=== PATIENT | female | born 1945 | race Caucasian/White ===

== ENCOUNTER 2016-09-02 15:37 | Outpatient (CLI) | payer MEDICARE | END 2016-09-02 15:38 | disposition home or self-care (01) | DX: Z01.810 Encounter for preprocedural cardiovascular examination (principal) ==

== ENCOUNTER 2018-08-03 12:53 | Outpatient (CLI) | payer MEDICARE, OTHER ==
--- NOTE | 2018-08-03 15:08 | Ultrasound Report ---
Reason: NONTOXIC MULTINODULAR GOITER Procedure Date: 08/03/2018 Accession Number: [id number] / [id number] Procedure: US - Head or Neck Soft Tissue CPT Code: FULL RESULT: EXAM: THYROID ULTRASOUND EXAM DATE: 08/03/2018 01:30 PM. CLINICAL HISTORY: NONTOXIC MULTINODULAR GOITER. COMPARISON: 01/07/2016. TECHNIQUE: Real time sonographic imaging of the thyroid was performed by the [employer]. Multiple employer relations representative static images were saved for review. FINDINGS: THYROID GLAND: Right Lobe: 5 x 1.8 x 1.7 cm, volume 8.1 cc. Heterogeneous background echotexture. Left Lobe: 5.1 x 2.1 x 1.5 cm, volume 8.3 cc. Heterogeneous background echotexture. Isthmus: 0.2 cm AP. Numerous subcentimeter cystic and solid nodules are again seen bilaterally. The largest nodule on the right is complex cystic/solid and measures 1 x 0.5 x 0.7 cm unchanged compared to the prior study. The dominant on the left is predominantly solid isoechoic and measures 1.9 x 0.6 x 1.2 cm, also unchanged. LYMPH NODES: No adenopathy demonstrated in the central or lateral compartment. OTHER: None. IMPRESSION: Stable multinodular gland compared with 01/07/2016. No significant new findings Management recommendations are based on 2015 [place] [employer] Management Guidelines for Adult Patients with Thyroid Nodules and Differentiated Thyroid Cancer. RADIA
== END 2018-08-03 12:54 | disposition home or self-care (01) ==
LOC: DI 12:53
PROVIDERS: ATTEND Registered Nurse
DX: E04.2 Nontoxic multinodular goiter (principal)
CPT/HCPCS: 76536

== ENCOUNTER 2020-04-01 10:21 | Day surgery (SDC) | payer MEDICARE, OTHER ==
[2020-04-01] MEDS ORDERED: LACTATED RINGERS 1,000 ML IV ONE ×3 (10:33→13:20)
[2020-04-01] MEDS ORDERED: ONDANSETRON 4 MG/2 ML VIAL IVP ONE (12:26)
[2020-04-01] MEDS ORDERED: MIDAZOLAM 2 MG/2 ML VIAL IVP ONE (12:26)
[2020-04-01] MEDS ORDERED: fentaNYL 250 MCG/5 ML VIAL IVP ONE (12:26)
[2020-04-01 14:12] VITALS: BP 140/67
== END 2020-04-01 10:22 | disposition home or self-care (01) ==
LOC: SDS 10:21
PROVIDERS: ATTEND Internal Medicine Gastroenterology
PROC: 0DBL8ZZ Excision of Transverse Colon, Via Natural or Artificial Opening Endoscopic (ICD-10-PCS; principal; 2020-04-01 11:30)
DX: D12.3 Benign neoplasm of transverse colon (principal); K62.1 Rectal polyp; I10 Essential (primary) hypertension; R01.1 Cardiac murmur, unspecified; F32.9 Major depressive disorder, single episode, unspecified; Z87.891 Personal history of nicotine dependence
CPT/HCPCS: 45380; 45385; J3010; J7120

== ENCOUNTER 2022-04-09 09:18 | Outpatient (CLI) | payer MEDICARE, OTHER ==
--- NOTE | 2022-04-10 08:27 | MRI Report ---
PROCEDURE: FOOT WO - LT INDICATIONS: LEFT FOOT PAIN TECHNIQUE: Noncontrast sagittal T1 spin echo and T2 fast spin echo with fat saturation, long-axis T1 spin echo a nd T2 fast spin echo with fat saturation, short-axis proton density fast spin echo and T2 fast spin e cho with fat saturation through the forefoot. COMPARISON: None. FINDINGS: Image quality: Excellent. Bones and joints: There is moderate hallux valgus. Moderate degenerative changes are seen at the fir st metatarsophalangeal joint with subchondral edema and marginal osteophyte formation. There is osseo us edema within the medial hallux sesamoid, which may be secondary to acute trabecular bone injury, d egenerative changes, or sesamoiditis. Minimal lateral subluxation of the hallux sesamoids. Mild scatt ered degenerative changes at the interphalangeal joints of the toes. Mild osseous edema is seen withi n the second metatarsal shaft. No intraosseous lesions. Soft tissues: Mild nonspecific soft tissue edema is seen surrounding the proximal second metatarsal shaft. Small intermetatarsal bursal effusions are noted. No suspicious and additional mass. The visua lized plantar foot muscles demonstrate normal signal and bulk for age. Intermediate signal intensity within the flexor hallucis longus tendon is consistent with tendinosis. Visualized flexor and extens or tendons otherwise appear intact, without tenosynovitis. Sagittal images demonstrate no evidence f or plantar plate tears. IMPRESSION: 1.Mild nonspecific osseous edema within the second metatarsal shaft with mild surrounding soft tissue edema, possibly related to a mild or resolving osseous contusion and/or mild stress reaction. 2.Moderate hallux valgus and moderate degenerative changes at the first metatarsophalangeal joint. 3.Osseous edema within the medial hallux sesamoid may be secondary to trabecular bone injury related to prior trauma versus metatarsosesamoid degenerative changes or sesamoiditis. 4.Mild extensor pollicis longus tendinosis. Reviewed by: Jared Joseph MD on 04/10/2022 8:26 AM PDT Approved by: Jared Joseph MD on 04/10/2022 8:26 AM PDT Station ID: [id number]
== END 2022-04-09 09:19 | disposition home or self-care (01) ==
LOC: DI 09:18
PROVIDERS: ATTEND Podiatrist Foot & Ankle Surgery
DX: R93.6 Abnormal findings on diagnostic imaging of limbs (principal); R93.89 Abnormal findings on diagnostic imaging of other specified body structures; M20.12 Hallux valgus (acquired), left foot; M67.864 Other specified disorders of tendon, left knee

== ENCOUNTER 2022-06-25 10:04 | Outpatient (CLI) | payer MEDICARE, OTHER ==
--- NOTE | 2022-06-25 12:46 | Mammography Report ---
BILATERAL DIGITAL SCREENING MAMMOGRAM 3D/2D WITH EXAGGERATED CC: 06/25/2022 CLINICAL: Routine screening. Comparison is made to exams dated: 07/17/2015 mammogram, 06/28/2013 mammogram, and 01/05/2012 mammogram - [facility]. There are scattered areas of fibroglandular density in both breasts (category b / 25%-50% glandular t issue). No significant masses, calcifications, or other findings are seen in either breast. There has been no significant interval change. IMPRESSION: NEGATIVE There is no mammographic evidence of malignancy. A 1 year screening mammogram is recommended. Based on the Tyrer Cuzick model (a risk assessment model) the patients lifetime risk is 1.4% and her 10 year risk is 0.0%. According to the ACR, ACS, and NCCN guidelines, an annual breast MRI exam delia g with mammogram is recommended if the patients lifetime risk is 20% or greater. This exam was interpreted at Station ID: [id number]. NOTE: For mammograms, a report in lay terms will be sent to the patient. Approximately 15% of breast malignancies will not be visualized mammographically. In the management of a palpable breast mass, a negative mammogram must not discourage biopsy of a clinically suspicious lesion. Electronically Signed By: Tayler blanchard/uyen:06/25/2022 11:07:15 ACR BI-RADS Category 1: Negative 3341F PARENCHYMAL PATTERN: (A) - The breast(s) demonstrate(s) scattered fibroglandular densities. BI-RADS CATEGORY: (1) - 1 RECOMMENDATION: (ANNUAL) - Recommend routine annual screening mammography. [id number] 1 year screening LATERALITY: (B)
== END 2022-06-25 10:05 | disposition home or self-care (01) ==
LOC: DI 10:04
PROVIDERS: ATTEND Registered Nurse
DX: Z12.31 Encounter for screening mammogram for malignant neoplasm of breast (principal)

== ENCOUNTER 2022-06-25 10:08 | Outpatient (CLI) | payer MEDICARE, OTHER ==
--- NOTE | 2022-06-25 14:12 | DEXA Report ---
PROCEDURE: Dexa Spine and/or Hip INDICATIONS: OSTEOPENIA TECHNIQUE: Dual energy x-ray absorptiometry (DXA) was performed on a [employer] System. Regions measur ed are the AP Spine, femoral neck, and if needed forearm. COMPARISON: None. FINDINGS: Lumbar Spine: Bone Mineral Density 1.1 to g/cm/cm,T score -0.5, previously -0.4 Left Femoral Neck: Bone Mineral Density 0.82 g/cm/cm, T score -1.6, previously -1 Left Hip: Bone Mineral Density 0.82 g/cm/cm,T score -1.5, previously -0.8 (T score greater or equal to -1.0: NORMAL) (T score from -1.1 to -2.4: OSTEOPENIA) (T score less than or equal to -2.5 to: OSTEOPOROSIS) Impression: Left femoral neck and hip osteopenia. T-scores are worse compared to 2016. Patients with diagnosis of osteoporosis or osteopenia should have regular bone mineral density assess ment. For those eligible for Medicare, routine testing is allowed once every 2 years. Testing frequ ency can be increased for patients who have rapidly progressing disease or for those who are receivin g medical therapy to restore bone mass. Reviewed by: Darrion Lacy MD on 06/25/2022 2:11 PM PST Approved by: Darrion Lacy MD on 06/25/2022 2:11 PM PST Station ID: [id number]
== END 2022-06-25 10:09 | disposition home or self-care (01) ==
LOC: DI 10:08
PROVIDERS: ATTEND Registered Nurse
DX: M85.88 Other specified disorders of bone density and structure, other site (principal); M85.89 Other specified disorders of bone density and structure, multiple sites

== ENCOUNTER 2023-03-30 09:01 | Outpatient (CLI) | payer MEDICARE, OTHER ==
--- NOTE | 2023-03-30 09:36 | XRAY Report ---
PROCEDURE: Hand 3 View RT INDICATIONS: CONTUSION OF RIGHT HAND TECHNIQUE: 3 views of the hand(s) acquired. COMPARISON: None. FINDINGS: Bones: No fractures or dislocations. No suspicious bony lesions. First CMC and interphalangeal bennett int space narrowing with associated osteophytosis. Soft tissues: No suspicious soft tissue calcifications or masses. IMPRESSION: No acute bony abnormality. Moderate interphalangeal and first CMC osteoarthritis. Reviewed by: Dennis Coombs on 03/30/2023 9:35 AM PDT Approved by: Dennis Coombs on 03/30/2023 9:35 AM PDT Station ID: [id number]
== END 2023-03-30 23:59 | disposition home or self-care (01) ==
LOC: DI.S 09:01
PROVIDERS: ATTEND Emergency Medicine
DX: M19.041 Primary osteoarthritis, right hand (principal); M18.11 Unilateral primary osteoarthritis of first carpometacarpal joint, right hand

== ENCOUNTER 2023-04-06 08:00 | Outpatient (CLI) | payer MEDICARE, OTHER ==
--- NOTE | 2023-04-06 09:05 | XRAY Report ---
PROCEDURE: Hand 3 View RT INDICATIONS: RIGHT 5TH MC FRACTURE TECHNIQUE: 3 views of the hand(s) acquired. COMPARISON: Radiograph 03/30/2023. FINDINGS: Bones: Unchanged fracture through the proximal metadiaphysis of the fifth metacarpal. Interphalangea l and first CMC joint space narrowing with osteophytosis. Soft tissues: No suspicious soft tissue calcifications or masses. IMPRESSION: No interval healing. Reviewed by: Dennis Coombs on 04/06/2023 9:04 AM PDT Approved by: Dennis Coombs on 04/06/2023 9:04 AM PDT Station ID: [id number]
== END 2023-04-06 23:59 | disposition home or self-care (01) ==
LOC: DI.WOS 08:00
PROVIDERS: ATTEND Orthopaedic Surgery
DX: S62.316D Displaced fracture of base of fifth metacarpal bone, right hand, subsequent encounter for fracture with routine healing (principal)

== ENCOUNTER 2023-05-04 08:00 | Outpatient (CLI) | payer MEDICARE, OTHER ==
--- NOTE | 2023-05-04 19:32 | XRAY Report ---
PROCEDURE: Hand 3 View RT INDICATIONS: RIGHT 5TH MC FRACTURE TECHNIQUE: 3 view(s) of the hand(s) acquired. COMPARISON: 04/06/2023 FINDINGS: Bones: Generalized decreased osseous mineralization present. Persistent transverse fracture through the proximal fifth metacarpal noted with stable positioning evidence of remodeling. Diffuse periarticular degenerative arthritic changes noted predominantly particularly involving the D IP and first CMC Soft tissues: No suspicious soft tissue calcifications. IMPRESSION: Healing fifth metacarpal fracture Osteopenia and polyarticular osteoarthritis Reviewed by: Boubacar Tneorio MD on 05/04/2023 6:30 PM AKST Approved by: Boubacar Tenorio MD on 05/04/2023 6:30 PM AKST Station ID: [id number]
== END 2023-05-04 23:59 | disposition home or self-care (01) ==
LOC: DI.WOS 08:00
PROVIDERS: ATTEND Orthopaedic Surgery
DX: S62.316D Displaced fracture of base of fifth metacarpal bone, right hand, subsequent encounter for fracture with routine healing (principal); M85.841 Other specified disorders of bone density and structure, right hand; M19.041 Primary osteoarthritis, right hand

== ENCOUNTER 2023-06-03 08:00 | Outpatient (CLI) | payer MEDICARE, OTHER ==
--- NOTE | 2023-06-03 13:38 | XRAY Report ---
PROCEDURE: Hand 3 View RT INDICATIONS: RIGHT HAND FRACTURE TECHNIQUE: 3 views of the hand(s) acquired. COMPARISON: Right hand radiographs 05/04/2023, 03/30/2023. FINDINGS: Bones: Fifth metacarpal base fracture is less conspicuous. No dislocations. No suspicious bony lesi ons. Advanced degenerative change within the interphalangeal joints. Probable remote ulnar styloid fr acture. Soft tissues: No suspicious soft tissue calcifications or masses. IMPRESSION: Ongoing healing of the fifth metacarpal base fracture. Reviewed by: Aamir Church MD on 06/03/2023 1:37 PM PST Approved by: Aamir Church MD on 06/03/2023 1:37 PM [facility] Station ID: [id number]
== END 2023-06-03 23:59 | disposition home or self-care (01) ==
LOC: DI.WOS 08:00
PROVIDERS: ATTEND Orthopaedic Surgery
DX: S62.316D Displaced fracture of base of fifth metacarpal bone, right hand, subsequent encounter for fracture with routine healing (principal)

== ENCOUNTER 2024-02-03 13:34 | Outpatient (CLI) | payer MEDICARE, OTHER ==
--- NOTE | 2024-02-04 18:24 | XRAY Report ---
Shoulder 2+V LT HISTORY: 79 years of age, LEFT SHOULDER PAIN TECHNIQUE: Shoulder 2+V LT COMPARISON: None. FINDINGS/IMPRESSION: Mild degenerative changes of the acromioclavicular joint. 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 Superior subluxation of the humeral head, concerning for rotator cuff pathology. Mild degenerative changes of the glenohumeral joint. No acute fracture or dislocation . 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 Reviewed by: Vilma Dykes MD on 02/04/2024 6:23 PM PDT Approved by: Vilma Dykes MD on 02/04/2024 6:23 PM PDT Station ID: [id number]
== END 2024-02-03 13:35 | disposition home or self-care (01) ==
LOC: DI 13:34
PROVIDERS: ATTEND Registered Nurse
DX: M25.512 Pain in left shoulder (principal)